=== PATIENT | male | born 1960 | race Caucasian/White ===

== ENCOUNTER 2023-05-02 18:44 | Observation (INO) | payer OTHER ==
[2023-05-02 20:42] LABS: BASO % 0.9 % (0-2.0); EOS % 1.2 % (0-4.5); HEMATOCRIT 43.9 % (35.4-49); HEMOGLOBIN 15.4 GM/dL (11.7-16.9); LYMPH % 22.3 % (8-40); MCH 31.2 pg (25.7-33.7); MCHC 35.1 g/dl (32.0-35.9); MEAN CELL VOLUME 88.8 fl (80-96); MEAN PLT VOLUME 8.4 fl (7.5-11.1); MONO % 4.6 % (3.8-10.2); PLATELET COUNT 211 10^3/uL (134-434); RBC 4.94 M/mm3 (4.00-5.60); RDW 13.8 % (11.9-15.9); WHITE BLOOD COUNT 6.6 K/mm3 (4.0-10.0)
[2023-05-02 20:49] LABS: INR 1.08 (0.83-1.09); PROTHROMBIN TIME (PATIENT) 12.5 SEC (9.7-13.0)
[2023-05-02 20:52] LABS: ACTIVATED PTT 31.4 SECONDS (25.2-36.5)
[2023-05-02 21:23] LABS: POTASSIUM 4.6 mmol/L (3.5-5.1)
[2023-05-02 21:27] LABS: ALBUMIN 3.5 g/dl (3.4-5.0); BLOOD UREA NITROGEN 22.4 mg/dL (7-18); MAGNESIUM 2.1 mg/dL (1.8-2.4)
[2023-05-02 21:30] LABS: CREATININE 0.9 mg/dL (0.55-1.3); PHOSPHOROUS 3.3 mg/dL (2.5-4.9)
[2023-05-02 21:31] LABS: BILIRUBIN,TOTAL 1.8 mg/dL (0.2-1); TOT PROT 7.6 g/dl (6.4-8.2)
[2023-05-02 21:32] LABS: CALCIUM 9.6 mg/dL (8.5-10.1)
[2023-05-03 07:41] LABS: BASO % 0.8 % (0-2.0); EOS % 2.7 % (0-4.5); HEMATOCRIT 43.7 % (35.4-49); HEMOGLOBIN 14.8 GM/dL (11.7-16.9); LYMPH % 37.8 % (8-40); MCH 30.4 pg (25.7-33.7); MEAN CELL VOLUME 89.4 fl (80-96); MEAN PLT VOLUME 8.8 fl (7.5-11.1); MONO % 8.2 % (3.8-10.2); NEUT % 50.5 % (42.8-82.8); PLATELET COUNT 194 10^3/uL (134-434); RBC 4.89 M/mm3 (4.00-5.60); RDW 13.4 % (11.9-15.9); WHITE BLOOD COUNT 6.1 K/mm3 (4.0-10.0)
[2023-05-03 07:59] LABS: ALBUMIN 3.4 g/dl (3.4-5.0); CALCIUM 8.6 mg/dL (8.5-10.1); MAGNESIUM 2.1 mg/dL (1.8-2.4)
[2023-05-03 08:02] LABS: PHOSPHOROUS 3.5 mg/dL (2.5-4.9)
[2023-05-03 08:04] LABS: BILIRUBIN,TOTAL 1.6 mg/dL (0.2-1); TOT PROT 7.2 g/dl (6.4-8.2)
[2023-05-03 08:20] LABS: BLOOD UREA NITROGEN 24.2 mg/dL (7-18); CREATININE 0.9 mg/dL (0.55-1.3)
[2023-05-03] MEDS: ENOXAPARIN NA (PORCINE) 40 MG/0.4 ML DISP.SYRIN SQ SCH (10:26)
[2023-05-03] MEDS: INSULIN ASPART SLIDING SCALE (NOVOLOG) 1 VIAL SQ SCH (11:50)
[2023-05-03] MEDS ORDERED: ATORVASTATIN CA 80 MG TABLET (FP) ONE (21:56)
[2023-05-03] MEDS: ATORVASTATIN CA 80 MG TABLET (FP) PO SCH (22:01)
[2023-05-03 22:25] LABS: URINE APPEARANCE CLEAR; URINE BILIRUBIN NEGATIVE (NEGATIVE); URINE COLOR YELLOW; URINE GLUCOSE (UA) TRACE (NEGATIVE); URINE KETONE NEGATIVE (NEGATIVE); URINE LEUK ESTERASE NEGATIVE (NEGATIVE); URINE NITRITE NEGATIVE (NEGATIVE); URINE PROTEIN NEGATIVE (NEGATIVE)
[2023-05-03 22:30] LABS: METHADONE, UR NEGATIVE (NEGATIVE)
[2023-05-03 22:31] LABS: COCAINE, UR NEGATIVE (NEGATIVE); OPIATES, URI NEGATIVE (NEGATIVE); PHENCYCLIDINE,URINE NEGATIVE (NEGATIVE); URINE BARBITURATES NEGATIVE (NEGATIVE); URINE BENZODIAZEPINES NEGATIVE (NEGATIVE)
[2023-05-03 22:33] LABS: URINE AMPHETAMINES NEGATIVE (NEGATIVE)
[2023-05-04 00:42] VITALS: BMI 33.7
[2023-05-04] MEDS: MECLIZINE HCL 12.5 MG TABLET PO ONE (20:48)
[2023-05-04] MEDS: CARVEDILOL 3.125 MG TABLET (FP) PO SCH (21:11)
[2023-05-04] MEDS ORDERED: PATIENT'S OWN MEDICATION (NON-FORMULARY) (Amlodipine Besylate/Valsartan [Amlodipine-Valsar PO SCH (22:00)
[2023-05-05 07:25] LABS: BASO % 0.9 % (0-2.0); EOS % 2.9 % (0-4.5); HEMATOCRIT 43.5 % (35.4-49); HEMOGLOBIN 15.2 GM/dL (11.7-16.9); LYMPH % 37.8 % (8-40); MCH 31.2 pg (25.7-33.7); MEAN PLT VOLUME 8.2 fl (7.5-11.1); MONO % 8.2 % (3.8-10.2); NEUT % 50.2 % (42.8-82.8); PLATELET COUNT 190 10^3/uL (134-434); RBC 4.89 M/mm3 (4.00-5.60); RDW 13.6 % (11.9-15.9); WHITE BLOOD COUNT 5.4 K/mm3 (4.0-10.0)
[2023-05-05 08:05] LABS: ALBUMIN 3.4 g/dl (3.4-5.0)
[2023-05-05 08:06] LABS: BLOOD UREA NITROGEN 17.5 mg/dL (7-18); MAGNESIUM 2.1 mg/dL (1.8-2.4)
[2023-05-05 08:08] LABS: CREATININE 0.9 mg/dL (0.55-1.3)
[2023-05-05 08:09] LABS: PHOSPHOROUS 3.7 mg/dL (2.5-4.9)
[2023-05-05 08:10] LABS: BILIRUBIN,TOTAL 1.4 mg/dL (0.2-1)
[2023-05-05] MEDS: VALSARTAN 160 MG TABLET PO SCH (09:23)
[2023-05-05] MEDS: amLODIPine BESYLATE 10 MG TABLET (FP) PO SCH (09:23)
[2023-05-05 16:06] VITALS: BP 147/82; PULSE 60; RESP 20; TEMP 98.1
== END 2023-05-05 16:15 | disposition home or self-care (01) ==
LOC: JER 18:44 → JERBED 05-03 00:37 → J4W 05-04 00:54
PROVIDERS: ADMIT Internal Medicine; ATTEND Internal Medicine
PROC: 3E023GC Introduction of Other Therapeutic Substance into Muscle, Percutaneous Approach (ICD-10-PCS; principal; 2023-05-03)
PROC: 3E013VG Introduction of Insulin into Subcutaneous Tissue, Percutaneous Approach (ICD-10-PCS; 2023-05-03)
DX: R42 Dizziness and giddiness (principal); I10 Essential (primary) hypertension; E78.5 Hyperlipidemia, unspecified; H91.90 Unspecified hearing loss, unspecified ear; Z86.73 Personal history of transient ischemic attack (TIA), and cerebral infarction without residual deficits; E11.9 Type 2 diabetes mellitus without complications
CPT/HCPCS: 36415; 70450-TC; 70551-TC; 80053; 80061; 80307; 81003; 82962; 83036; 83735; 84100; 84443; 84484; 85025; 85610; 85730; 93005; 93010; 93306-TC; 96372; 97116-GP; 97161-GP; 99285-25; G0378